=== PATIENT | female | born 2000 | race African-American/Black ===

== ENCOUNTER 2020-12-10 17:42 | Emergency (ER) | payer OTHER ==
[~2020-12-10] VITALS: Ht 165.1 cm; Wt 57.0 kg
[2020-12-10 17:43] VITALS: BP 128/80
[2020-12-10] MEDS ORDERED: AMOX875T PO (18:57)
[2020-12-10] MEDS ORDERED: AMOXICILLIN 500 MG CAP PO ONE (19:00)
== END 2020-12-10 19:07 | disposition home or self-care (01) ==
LOC: M ED 17:42
DX: J02.0 Streptococcal pharyngitis (principal)